=== PATIENT | female | born 1990 | race Caucasian/White ===

== ENCOUNTER 2019-09-25 11:09 | Outpatient (CLI) | payer OTHER, SELFPAY ==
[2019-09-25 11:47] VITALS: BP 128/83; PULSE 81
[2019-09-25 11:56] LABS: Basophils Percent Auto 0.4 % (0.2-1.2); Eosinophils Absolute Auto 0.2 K/mm3 (0-0.3); Eosinophils Percent Auto 2.2 % (0-4.4); Hematocrit 31.9 % (37.0-47.0); Hemoglobin 10.4 g/dL (12.0-15.0); Immature Granulocyte Absolute 0.08 K/mm3 (0.00-0.031); Immature Granulocyte Percent A 0.8 % (0-0.5); Lymphocytes Absolute Auto 1.52 K/mm3 (0.9-3.2); Lymphocytes Percent Auto 16.1 % (18.3-44.2); Mean Corpuscular HGB Conc 32.6 g/dl (32-36); Mean Corpuscular Hemoglobin 28.9 pg (26-34); Mean Corpuscular Volume 88.6 fl (80-100); Mean Platelet Volume 10.3 fl (7.4-10.4); Monocytes Absolute Auto 0.9 K/mm3 (0.1-0.6); Monocytes Percent Auto 9.4 % (2.6-8.5); Neutrophils Absolute Auto 6.7 K/mm3 (1.3-6.7); Neutrophils Percent Auto 71.1 % (45.5-73.1); Platelet Count Result 257 k/mm3 (150-375); Red Cell Distribution Width 13.3 % (11.5-14.5); White Blood Count 9.5 K/mm3 (4.5-10.0)
[2019-09-25 11:59] LABS: Add Urine Microscopic? YES; Appearance Urine Cloudy (Clear); Bilirubin Urine Negative (Negative); Blood Urine Negative (Negative); Color Urine Yellow (Yellow); Glucose Urine UA Negative (Negative); Ketones Urine Negative (Negative); Leukocyte Esterase Ur 1+ LEU/UL (NEGATIVE); Nitrate Urine Negative (Negative); Protein Urine Negative (Negative); RBC Urine 0-2 /hpf (0-2); Squamous Epithelial Cell Urine Many /hpf (Few); Urobilinogen Urine Negative mg/dL (<2.0)
[2019-09-25 12:01] VITALS: BP 127/80; PULSE 79
[2019-09-25 12:09] LABS: Alanine Aminotransferase 14 U/L (4-35); Albumin Level 3.3 g/dL (3.5-5.1); Alkaline Phosphatase 166 U/L (38-126); Aspartate Amino Transferase 26 U/L (14-36); Bilirubin,Total 0.2 mg/dL (0.2-1.3); Blood Urea Nitrogen 7 mg/dL (7-17); Calcium 8.5 mg/dL (8.4-10.2); Carbon Dioxide 20 mmol/L (22-30); Chloride 109 mmol/L (98-107); Estimated Glomerular Filt Rate > 60; Glucose 74 mg/dL (65-105); Potassium 4.2 mmol/L (3.4-5.0); Sodium 135 mmol/L (137-145); Uric Acid 5.2 mg/dL (2.5-7.5)
[2019-09-25 12:16] VITALS: BP 129/86; PULSE 78
[2019-09-25 12:22] LABS: Creatinine Urine 64.3 mg/dL; Total Protein Urine Random 23 mg/dL
[2019-09-25 12:31] VITALS: BP 137/86; PULSE 76
[2019-09-25 12:33] VITALS: BP 128/83; PULSE 97
== END 2019-09-25 12:58 | disposition home or self-care (01) ==
LOC: ANHLDR 11:42 → ANHOBOP 11:49 → ANHLDR 11:49
PROVIDERS: Visit Provider Obstetrics & Gynecology
DX: O13.3 Gestational [pregnancy-induced] hypertension without significant proteinuria, third trimester (principal); Z3A.36 36 weeks gestation of pregnancy
CPT/HCPCS: 36415; 59025; 80053; 81001; 82570; 84156; 84550; 85025; 87086; 99199

== ENCOUNTER 2019-10-02 13:42 | Outpatient (CLI) | payer OTHER, SELFPAY ==
[2019-10-02 14:13] VITALS: PULSE 83
[2019-10-02 14:15] VITALS: BP 135/89; PULSE 88
[2019-10-02 14:25] LABS: Basophils Absolute Auto 0.1 K/mm3 (0.0-0.1); Basophils Percent Auto 0.5 % (0.2-1.2); Eosinophils Absolute Auto 0.4 K/mm3 (0-0.3); Eosinophils Percent Auto 3.8 % (0-4.4); Hematocrit 30.8 % (37.0-47.0); Hemoglobin 9.9 g/dL (12.0-15.0); Immature Granulocyte Absolute 0.07 K/mm3 (0.00-0.031); Immature Granulocyte Percent A 0.7 % (0-0.5); Lymphocytes Absolute Auto 1.43 K/mm3 (0.9-3.2); Mean Corpuscular HGB Conc 32.1 g/dl (32-36); Mean Corpuscular Hemoglobin 28.6 pg (26-34); Mean Platelet Volume 10.4 fl (7.4-10.4); Monocytes Percent Auto 9.7 % (2.6-8.5); Neutrophils Absolute Auto 7.3 K/mm3 (1.3-6.7); Neutrophils Percent Auto 71.3 % (45.5-73.1); Platelet Count Result 270 k/mm3 (150-375); Red Blood Count 3.46 M/mm3 (4.2-5.4); Red Cell Distribution Width 13.7 % (11.5-14.5); White Blood Count 10.2 K/mm3 (4.5-10.0)
[2019-10-02 14:30] VITALS: BP 136/94; PULSE 86
[2019-10-02 14:38] LABS: Alanine Aminotransferase 15 U/L (4-35); Albumin Level 3.2 g/dL (3.5-5.1); Alkaline Phosphatase 146 U/L (38-126); Aspartate Amino Transferase 24 U/L (14-36); Bilirubin,Total 0.3 mg/dL (0.2-1.3); Blood Urea Nitrogen 7 mg/dL (7-17); Calcium 8.6 mg/dL (8.4-10.2); Carbon Dioxide 21 mmol/L (22-30); Chloride 109 mmol/L (98-107); Estimated Glomerular Filt Rate > 60; Glucose 81 mg/dL (65-105); Potassium 4.1 mmol/L (3.4-5.0); Sodium 133 mmol/L (137-145)
[2019-10-02 14:45] VITALS: BP 138/88; PULSE 88
--- NOTE | 2019-10-02 14:50 | PC.NURSE ---
Called Dr. Goetz with lab results and BPs. November D/C with 24hr urine.
== END 2019-10-02 15:05 | disposition home or self-care (01) ==
LOC: ANHOBOP 14:06 → ANHOBPP 11-02 10:57
PROVIDERS: Visit Provider Student in an Organized Health Care Education/Training Program
DX: O13.9 Gestational [pregnancy-induced] hypertension without significant proteinuria, unspecified trimester (principal); Z3A.00 Weeks of gestation of pregnancy not specified
CPT/HCPCS: 36415; 59025; 80053; 84550; 85025; 99199

== ENCOUNTER 2019-10-07 01:05 | Observation (INO) | payer OTHER, SELFPAY ==
--- NOTE | 2019-10-07 01:05 | OBADM ---
This patient, Luna Bush, admitted to the OB room Labor/Delivery/Recovery 105 for observation. Patient/family oriented to hospital policies and general routines including ID bracelet, bed and alarms, visiting hours, pain management, procedures, bathroom and other care routines, personal items, smoking policy, room service/diet, and visiting hours. Patient/Family are encouraged to report perceived risks to care and to ask questions if they do not understand what they are told or what they should do.
[2019-10-07 01:31] VITALS: BP 150/95; PULSE 88
[2019-10-07 02:01] VITALS: BP 138/94; PULSE 92
--- NOTE | 2019-10-19 10:00 | PM.DS ---
DS: Diagnosis Admitting Diagnosis Admitting Diagnosis: gest htn DS: Summary Time Spent with Patient Time attestation: Total time spent providing and/or coordinating discharge services: Exam Const: General: no acute distress Eyes: General: appearance normal, both eyes and all related structures Neck: Neck: supple and no JVD Thyroid: thyroid normal Resp: Effort & Inspection: normal respiratory effort Auscultation: clear to auscultation bilaterally Cardio: Rate: regular rate Rhythm: regular rhythm GI: Inspection: non-distended GI Palp: Yes Soft to palpation, No Tenderness to palpation present (GI) and No Guarding due to palpation present (GI) Auscultation: normal bowel sounds : General: Yes bladder normal to palpation External Female Exam: normal external appearance Speculum Exam - Vagina: normal vaginal discharge and No vaginal bleeding Speculum Exam - Cervix: nontender Bimanual exam- vagina & uterus: bladder normal to palpation and No Cervical tenderness present OB/external & speculum: No vaginal bleeding Skin: General skin exam: no rashes or lesions noted Extrem: General: normal to inspection and no edema Psych: Mental Status: mental status grossly normal Affect: normal affect Discharge Plan Discharge Discharging Clinician: Regulo Null Patient Disposition: Home, Self-Care Activity: as tolerated Diet: regular Discharge Instructions: OB ANTEPARTUM DISCHARGE INSTRUCTIONS This information is given to help you properly care for yourself at home after your discharge from the hospital. Follow these instructions until your doctor tells you otherwise. DIET: Eat Three Well Balanced Meals per Day Drink at Least Eight 8-Ounce Glasses of Caffeine-Free Beverages Daily Additional Diet Instructions: ACTIVITY: As Tolerated Additional Activity Instructions: RETURN TO LABOR AND DELIVERY IF YOU HAVE: Any Change In Baby's Normal Movement Pattern Any Leakage of Fluid Contractions 3-5 Minutes Apart with Increasing Intensity Vaginal Bleeding Worsening Signs of Hypertension in as per Handout Additional Reasons to Return to Labor and Delivery: Contractions may feel like abdominal pain, tightening, cramping, pressure, back ache, or thigh ache. 24 Hour Urine Collection: Continue 24 hour urine collection until at . When collection is completed, return specimen to the [facility]. See handout for 24 hour urine collection. OTHER INSTRUCTIONS: FOLLOW-UP CARE: Keep Next Scheduled Appointment To see in/on Valuables released to patient or family? N/A Medications from home returned to patient? N/A I Acknowledge Receipt of and Understand the Above Instructions IF YOU HAVE ANY QUESTIONS REGARDING THESE INSTRUCTIONS, PLEASE CALL [phone]. IF PROBLEMS ARISE, CALL YOUR PROVIDER. IF EMERGENCY CARE IS NEEDED, [facility] EMERGENCY ROOM IS AVAILABLE 24 HOURS A DAY. Stand Alone Forms: General Discharge Information Follow-up/Referrals: Kalen Cano MD [Physician] - Discharge Medications: No Action hydrocodone-acetaminophen [[place]] 5-325 mg tablet 1 - 2 tablet PO Q6H PRN (Reason: pain) Qty: 30 RF: 0 ibuprofen 600 mg tablet 600 mg PO Q6H PRN (Reason: cramps) Qty: 30 RF: 0 ferrous sulfate 325 mg (65 mg iron) tablet 325 mg PO BID Qty: 60 RF: 0 labetalol 200 mg tablet 200 mg PO Q12H Qty: 60 RF: 0 Date of admission: 10/07/19 01:05 Primary Care Provider: UNKNOWN,DOCTOR Admitting Provider: Regulo Null Discharge Date/Time: 10/07/19 02:45 Attending physician on admission: Regulo Null
== END 2019-10-07 02:45 | disposition home or self-care (01) ==
PROVIDERS: Admitting Provider Obstetrics & Gynecology; Visit Provider Obstetrics & Gynecology
DX: O13.9 Gestational [pregnancy-induced] hypertension without significant proteinuria, unspecified trimester (principal); Z3A.00 Weeks of gestation of pregnancy not specified
CPT/HCPCS: G0378; G0379

== ENCOUNTER 2019-10-07 08:39 | Observation (INO) | payer OTHER, SELFPAY ==
--- NOTE | 2019-10-09 13:07 | PM.OBTRLD ---
OB - Triage/Final Diagnosis Visit Information Reason for evaluation: threatened labor
== END 2019-10-07 10:34 | disposition home or self-care (01) ==
PROVIDERS: Admitting Provider Obstetrics & Gynecology; Visit Provider Obstetrics & Gynecology
DX: O47.1 False labor at or after 37 completed weeks of gestation (principal); Z3A.38 38 weeks gestation of pregnancy
CPT/HCPCS: G0378; G0379

== ENCOUNTER 2019-10-08 08:02 | Inpatient (IN) | payer OTHER, SELFPAY ==
[2019-10-08] VITALS (132 sets, daily range): BP systolic 125–182; BP diastolic 76–123; PULSE 101–138; RESP 18–22; TEMP 37.2–38.1; O2SAT 92–100; BMI 38.7
[2019-10-08 08:30] LABS: Basophils Absolute Auto 0.1 K/mm3 (0.0-0.1); Basophils Percent Auto 0.5 % (0.2-1.2); Eosinophils Absolute Auto 0.1 K/mm3 (0-0.3); Eosinophils Percent Auto 0.3 % (0-4.4); Hematocrit 30.2 % (37.0-47.0); Hemoglobin 9.8 g/dL (12.0-15.0); Immature Granulocyte Absolute 0.15 K/mm3 (0.00-0.031); Immature Granulocyte Percent A 0.9 % (0-0.5); Lymphocytes Absolute Auto 1.24 K/mm3 (0.9-3.2); Lymphocytes Percent Auto 7.8 % (18.3-44.2); Mean Corpuscular HGB Conc 32.5 g/dl (32-36); Mean Corpuscular Volume 89.3 fl (80-100); Mean Platelet Volume 10.5 fl (7.4-10.4); Monocytes Absolute Auto 1.5 K/mm3 (0.1-0.6); Monocytes Percent Auto 9.4 % (2.6-8.5); Neutrophils Absolute Auto 12.8 K/mm3 (1.3-6.7); Neutrophils Percent Auto 81.1 % (45.5-73.1); Platelet Count Result 252 k/mm3 (150-375); Red Blood Count 3.38 M/mm3 (4.2-5.4); Red Cell Distribution Width 14.3 % (11.5-14.5); White Blood Count 15.8 K/mm3 (4.5-10.0)
[2019-10-08] MEDS: LACTATED RINGERS 1,000 ML 125 ML IV CONT ×3 (08:30→14:40)
[2019-10-08 08:44] LABS: Alanine Aminotransferase 16 U/L (4-35); Albumin Level 3.6 g/dL (3.5-5.1); Alkaline Phosphatase 179 U/L (38-126); Aspartate Amino Transferase 27 U/L (14-36); Bilirubin,Total 0.2 mg/dL (0.2-1.3); Blood Urea Nitrogen 10 mg/dL (7-17); Calcium 8.8 mg/dL (8.4-10.2); Carbon Dioxide 18 mmol/L (22-30); Chloride 105 mmol/L (98-107); Estimated CRCL calculation 95 ml/min; Estimated Glomerular Filt Rate > 60; Glucose 80 mg/dL (65-105); Potassium 3.9 mmol/L (3.4-5.0); Sodium 131 mmol/L (137-145)
--- NOTE | 2019-10-08 08:49 | WPDANESEPP ---
Anes - Eval Pre Procedure Procedure: labor epidural Date/Time: 10/08/19 08:49 Surgeon: becky Pre Op Diagnosis: labor Patient Data Age: 29 Gender: F Height: 1.55 m Weight: 93 kg Last Vital Signs Pulse Ox 98 10/08/19 08:48 Allergies Allergy/AdvReac Type Severity Reaction Status Date / Time No Known Allergies Allergy Unverified 06/24/15 15:50 Laboratory Tests 10/08/19 10/08/19 10/08/19 08:25 08:25 08:25 WBC 15.8 K/mm3 H K/mm3 (4.5-10.0) RBC 3.38 M/mm3 L M/mm3 (4.2-5.4) Hgb 9.8 g/dL L g/dL (12.0-15.0) Hct 30.2 % L % (37.0-47.0) MCV 89.3 fl fl (80-100) MCH 29.0 pg pg (26-34) MCHC 32.5 g/dl g/dl (32-36) RDW 14.3 % % (11.5-14.5) Plt Count 252 k/mm3 k/mm3 (150-375) MPV 10.5 fl H fl (7.4-10.4) Immature Gran % (Auto) 0.9 % H % (0-0.5) Neut % (Auto) 81.1 % H % (45.5-73.1) Lymph % (Auto) 7.8 % L % (18.3-44.2) [place] % (Auto) 9.4 % H % (2.6-8.5) Eos % (Auto) 0.3 % % (0-4.4) Baso % (Auto) 0.5 % % (0.2-1.2) Lymph # (Auto) 1.24 K/mm3 K/mm3 (0.9-3.2) [place] # (Auto) 1.5 K/mm3 H K/mm3 (0.1-0.6) Eos # (Auto) 0.1 K/mm3 K/mm3 (0-0.3) Baso # (Auto) 0.1 K/mm3 K/mm3 (0.0-0.1) Abs Immat Gran (auto) 0.15 K/mm3 H K/mm3 (0.00-0.031) Absolute Neuts (auto) 12.8 K/mm3 H K/mm3 (1.3-6.7) Absolute Nucleated RBC 0.0 K/mm3 K/mm3 (0.0-0.012) Nucleated RBC % 0.0 % % (0.0-0.2) Sodium Potassium Chloride Carbon Dioxide BUN Creatinine Estim Creat Clear Calc Estimated GFR Glucose Calcium Total Bilirubin AST ALT Alkaline Phosphatase Total Protein Albumin RPR Pending Blood Type Pending Antibody Screen Pending 10/08/19 08:25 WBC RBC Hgb Hct MCV MCH MCHC RDW Plt Count MPV Immature Gran % (Auto) Neut % (Auto) Lymph % (Auto) [place] % (Auto) Eos % (Auto) Baso % (Auto) Lymph # (Auto) [place] # (Auto) Eos # (Auto) Baso # (Auto) Abs Immat Gran (auto) Absolute Neuts (auto) Absolute Nucleated RBC Nucleated RBC % Sodium 131 mmol/L L mmol/L (137-145) Potassium 3.9 mmol/L mmol/L (3.4-5.0) Chloride 105 mmol/L mmol/L (98-107) Carbon Dioxide 18 mmol/L L mmol/L (22-30) BUN 10 mg/dL mg/dL (7-17) Creatinine 0.80 mg/dL mg/dL (0.7-1.0) Estim Creat Clear Calc 95 ml/min ml/min Estimated GFR > 60 (59 - ) Glucose 80 mg/dL mg/dL (65-105) Calcium 8.8 mg/dL mg/dL (8.4-10.2) Total Bilirubin 0.2 mg/dL mg/dL (0.2-1.3) AST 27 U/L U/L (14-36) ALT 16 U/L U/L (4-35) Alkaline Phosphatase 179 U/L H U/L (38-126) Total Protein 7.0 g/dL g/dL (6.3-8.2) Albumin 3.6 g/dL g/dL (3.5-5.1) RPR Blood Type Antibody Screen Patient hx anesthesia problems: none Family hx anesthesia problems: none [facility] Family History Family History (Updated 09/25/19 @ 12:06 by Ana Merritt RN) Mother Diabetes mellitus Hypertension Social History Social History Smoking status: Never smoker Substance use: never Gender identity (if verbalized by the patient): Female Spiritual care concerns: No Exam Day of Procedure 10/08/19 08:49 Patient weight: obese Heart: regular rate and rhythm Lungs: normal air movement Airway: Mallampati scale class II Neurological: alert and oriented
[2019-10-08 10:56] LABS: Uric Acid 7.8 mg/dL (2.5-7.5)
[2019-10-08] MEDS: LABETALOL HCL 100 MG TABLET PO ×2 (12:14→13:39)
[2019-10-08] MEDS: OXYTOCIN 30 UNITS/NS 500 ML 30 UNITS/500 ML BAG IV CONT (13:40)
[2019-10-08] MEDS: AMPICILLIN 2 GM/NS 100 ML 2 GM/100 ML BAG IVPB (14:51)
--- NOTE | 2019-10-08 16:36 | PM.OBPNVD ---
OB - PN: Subj Subjective Date/time seen: 10/08/19 16:36 Interval history: pushing x 3 hours put on forcepts with mithout much movement offered section risks/benefits fhts ok OB - PN: Obj Data Labs CBC & Chem 7: 10/08/19 08:25 10/08/19 08:25 Labs: Laboratory Results - last 24 hr 10/08/19 10/08/19 10/08/19 08:24 08:25 08:25 WBC 15.8 H RBC 3.38 L Hgb 9.8 L Hct 30.2 L MCV 89.3 MCH 29.0 MCHC 32.5 RDW 14.3 Plt Count 252 MPV 10.5 H Immature Gran % (Auto) 0.9 H Neut % (Auto) 81.1 H Lymph % (Auto) 7.8 L [place] % (Auto) 9.4 H Eos % (Auto) 0.3 Baso % (Auto) 0.5 Lymph # (Auto) 1.24 [place] # (Auto) 1.5 H Eos # (Auto) 0.1 Baso # (Auto) 0.1 Abs Immat Gran (auto) 0.15 H Absolute Neuts (auto) 12.8 H Absolute Nucleated RBC 0.0 Nucleated RBC % 0.0 Sodium Potassium Chloride Carbon Dioxide BUN Creatinine Estim Creat Clear Calc Estimated GFR Glucose Uric Acid 7.8 H Calcium Total Bilirubin AST ALT Alkaline Phosphatase Total Protein Albumin Blood Type B Positive Antibody Screen Negative 10/08/19 08:25 WBC RBC Hgb Hct MCV MCH MCHC RDW Plt Count MPV Immature Gran % (Auto) Neut % (Auto) Lymph % (Auto) [place] % (Auto) Eos % (Auto) Baso % (Auto) Lymph # (Auto) [place] # (Auto) Eos # (Auto) Baso # (Auto) Abs Immat Gran (auto) Absolute Neuts (auto) Absolute Nucleated RBC Nucleated RBC % Sodium 131 L Potassium 3.9 Chloride 105 Carbon Dioxide 18 L BUN 10 Creatinine 0.80 Estim Creat Clear Calc 95 Estimated GFR > 60 Glucose 80 Uric Acid Calcium 8.8 Total Bilirubin 0.2 AST 27 ALT 16 Alkaline Phosphatase 179 H Total Protein 7.0 Albumin 3.6 Blood Type Antibody Screen OB - PN A/P Time Spent With Patient Time: Total time spent is greater than 50% in coordination of care (as documented) at patient's floor/unit and/or counseling patient:
--- NOTE | 2019-10-08 16:38 | PM.IMHP ---
H&P: HPI History of Present Illness Chief complaint: labor Narrative: Luna Bush is a 29 year old female presents at term in active labor. has apparently been uncomplicated. She is negative for group B strep Review of Systems Review of Systems: All systems reviewed & are unremarkable except as noted in HPI and below PMFSH Family History Family History Mother Diabetes mellitus Hypertension Social History Social History Smoking status: Never smoker Substance use: never Gender identity (if verbalized by the patient): Female Spiritual care concerns: No Meds Home Medications and Allergies Home Medications Medication Instructions Recorded Confirmed Type No Home Medications 10/08/19 10/08/19 History Allergies Allergy/AdvReac Type Severity Reaction Status Date / Time No Known Allergies Allergy Verified 10/08/19 14:56 Vital Signs Vital Signs - 24 hr 10/08/19 08:48 10/08/19 08:53 10/08/19 08:58 Temperature Pulse Rate 111 H Blood Pressure 159/104 H Pulse Oximetry 98 98 99 10/08/19 09:01 10/08/19 09:03 10/08/19 09:05 Temperature Pulse Rate 110 H 118 H Blood Pressure 164/106 H 165/102 H Pulse Oximetry 100 10/08/19 09:08 10/08/19 09:10 10/08/19 09:12 Temperature Pulse Rate 126 H 116 H Blood Pressure 167/85 H 149/91 H Pulse Oximetry 99 10/08/19 09:13 10/08/19 09:14 10/08/19 09:16 Temperature 98.9 F Pulse Rate 120 H 119 H Blood Pressure 149/92 H 147/87 H Pulse Oximetry 99 10/08/19 09:18 10/08/19 09:19 10/08/19 09:22 Temperature Pulse Rate 115 H 121 H Blood Pressure 146/89 H 142/92 H Pulse Oximetry 98 10/08/19 09:23 10/08/19 09:25 10/08/19 09:28 Temperature Pulse Rate 119 H 118 H Blood Pressure 136/90 140/91 H Pulse Oximetry 97 100 10/08/19 09:31 10/08/19 09:33 10/08/19 09:34 Temperature Pulse Rate 117 H 119 H Blood Pressure 143/86 H 140/87 Pulse Oximetry 99 10/08/19 09:40 10/08/19 09:43 10/08/19 09:46 Temperature Pulse Rate 112 H 111 H 114 H Blood Pressure 134/87 133/90 136/89 Pulse Oximetry 10/08/19 09:49 10/08/19 09:52 10/08/19 09:55 Temperature Pulse Rate 109 H 104 H 110 H Blood Pressure 141/89 H 140/94 H 131/89 Pulse Oximetry 10/08/19 09:58 10/08/19 10:01 10/08/19 10:16 Temperature Pulse Rate 109 H 111 H 110 H Blood Pressure 137/88 137/93 H 146/88 H Pulse Oximetry 10/08/19 10:31 10/08/19 10:46 10/08/19 11:01 Temperature Pulse Rate 113 H 126 H 105 H Blood Pressure 149/95 H 163/93 H 136/76 Pulse Oximetry 10/08/19 11:16 10/08/19 11:31 10/08/19 11:46 Temperature Pulse Rate 124 H 128 H 131 H Blood Pressure 143/99 H 148/79 H 165/107 H Pulse Oximetry 10/08/19 12:00 10/08/19 12:01 10/08/19 12:14 Temperature 99.1 F Pulse Rate 117 H 125 H Blood Pressure 164/101 H Pulse Oximetry 10/08/19 12:16 10/08/19 12:31 10/08/19 12:46 Temperature Pulse Rate 123 H 120 H 127 H Blood Pressure 166/107 H 161/101 H 170/97 H Pulse Oximetry 10/08/19 13:01 10/08/19 13:16 10/08/19 13:17 Temperature 100.3 F H Pulse Rate 128 H 131 H Blood Pressure 151/91 H 161/100 H Pulse Oximetry 10/08/19 13:31 10/08/19 13:38 10/08/19 13:39 Temperature 100.3 F H Pulse Rate 127 H 128 H Blood Pressure 160/98 H Pulse Oximetry 10/08/19 13:46 10/08/19 14:01 10/08/19 14:31 Temperature Pulse Rate 129 H 131 H 114 H Blood Pressure 167/100 H 167/104 H 155/90 H Pulse Oximetry 10/08/19 14:43 Temperature 100.5 F H Pulse Rate Blood Pressure Pulse Oximetry Exam Const: General: no acute distress Eyes: General: appearance normal, both eyes and all related structures Neck: Neck: supple and no JVD Thyroid: thyroid normal Resp: Effort & Inspection: normal respiratory effort Ausc
[2019-10-08] MEDS: ceFAZolin 2 GM/D5W 50 ML 2 GM/50 ML BAG IVPB (16:55)
--- NOTE | 2019-10-08 17:41 | PM.PROC ---
Procedure Note - Detailed Date of procedure: 10/08/19 Pre-op diagnosis: labor Surgeon: Regulo Null MD postop diagnosis term failure to descend Procedure: Primary low-transverse section EBL: 545cc Anesthesia: Epidural Findings: Male infant 7 lb oz Apgars 6 and 9 at 5 respectively Complications: None Description of procedure: The patient was admitted in active labor and got to completely dilated. She pushed for [id number]. She was unable to bring the head low enough despite application of forceps which were deemed not able to bring down. After obtaining informed consent she was taken to the back. She was prepped and draped in normal sterile fashion placed in the supine position. Under excellent epidural anesthesia the abdomen was entered in Pfannenstiel fashion progressive layers to the fascia. Fascia was incised in upward outward fashion bilaterally. Underlying muscles sharply dissected parietal perineum of a Doreen clamp. This was carried sharply superiorly and then inferiorly to open bladder bladder blade was placed a bladder flap was formed a bladder blade returned a low transverse incision made in the head delivered in the MARYLIN position. Anterior posterior shoulder were delivered spontaneously. Cord clamped x2 and cut. Passed off the table given Apgars 6 [id number]. Cord blood was drawn placenta. Placenta was then delivered intact spontaneously. After assuring no membranes were to remain in the uterus, the uterus was closed with continuous running locking 0 Vicryl from lateral edge to lateral edge. This was followed by a 2nd imbricating running locking 0 Vicryl from lateral edge to lateral edge. Hemostasis was assured. The ovaries and tubes appeared within normal limits. The uterus returned to the abdomen. The uterine incision inspected 1 last time and noted be hemostatic. The laps removed and accounted for. The fascia closed with continuous running 0 Vicryl from lateral edge to midline bilaterally. Irrigation the subcutaneous layer. The skin closed with 4 O Monocryl and glue. All sponge, needle, instrument counts were correct. There were no immediate complications. Mom and baby are doing fine at the time of dictation. It should be noted that there was an odor to the amniotic fluid and placenta and this was relayed to the pediatric team. The patient will be placed on antibiotics for 24 hours
--- NOTE | 2019-10-08 18:20 | PC.NURSE ---
rn at bedside. pt arm bent during bp reading. pt denies any pih symptoms
--- NOTE | 2019-10-08 18:35 | PC.NURSE ---
RN AT BEDSIDE.PT RESTING COMFORTABLE. PT DENIES ALL PIH SYMPTOMS. ATTEMPTING TO RETAKE BP.
--- NOTE | 2019-10-08 18:41 | PC.NURSE ---
RN AT BEDSIDE. PT DENIES ANY PIH SYMPTOMS. BP CUFF REPOSITIONED. REGULAR BP CUFF REMAINS ON LEFT UPPER ARM.
--- NOTE | 2019-10-08 19:09 | PC.NURSE ---
dr negron called and notified of missing post-op anesthesia orders. dr negron stated dr was unable to enter new orders r/t labor fentanyl orders still being active at that time. dr informed that labor orders have been d/c'd. orders received to administer 25 mcg of fentanyl [id number] up to 250 mcg. telephone orders read back and confirmed.
[2019-10-08] MEDS: LABETALOL HCL INJ 100 MG/20 ML VIAL 20 MG IV PUSH (19:53)
[2019-10-08] MEDS: OXYTOCIN 30 UNITS/NS 500 ML 30 UNITS/500 ML BAG 125 UNITS IV CONT (19:57)
--- NOTE | 2019-10-08 20:23 | PC.NURSE ---
dr clau dozier paged. dr returned page. orders for 1g ancef q8hr x2 doses to start 8 hours after initial ancef 2g dose in or, confirmed. rn inquired about toradol order r/t pt hypertension. stated toradol may be administered if diastolic bp is less than 90. dr stated to report bp's more than or equal to 165 systolic and/or more than or equal to 110 diastolic.
--- NOTE | 2019-10-08 20:40 | PC.NURSE ---
Patient transferred to post room #282 via stretcher. Support person present. Oriented to unit, room, information board, rooming in, admission packet and security measures. Patient verbalizes understanding.
[2019-10-08] MEDS: DEXTROSE 5%/0.45% SOD CHL 1,000 ML 125 ML IV CONT (22:28)
[2019-10-09] VITALS (7 sets, daily range): BP systolic 115–141; BP diastolic 72–96; PULSE 99–124; RESP 16–20; TEMP 36.5–37.7; O2SAT 97–100
[2019-10-09 05:34] LABS: Hematocrit 24.3 % (37.0-47.0); Hemoglobin 7.8 g/dL (12.0-15.0); Mean Corpuscular HGB Conc 32.1 g/dl (32-36); Mean Corpuscular Hemoglobin 28.7 pg (26-34); Mean Corpuscular Volume 89.3 fl (80-100); Mean Platelet Volume 10.9 fl (7.4-10.4); Platelet Count Result 213 k/mm3 (150-375); Red Blood Count 2.72 M/mm3 (4.2-5.4); Red Cell Distribution Width 14.5 % (11.5-14.5); White Blood Count 15.5 K/mm3 (4.5-10.0)
[2019-10-09 05:58] LABS: Band Neutrophils Percent 15 % (0-6); Lymphocytes Absolute Manual 0.93 K/mm3 (1.1-4.5); Monocytes Absolute Manual 1.08 K/mm3 (0.1-0.90); Monocytes Percent Manual 7 % (3-9); Neutrophils Absolute Manual 13.48 K/mm3 (1.7-7.2); Neutrophils Percent Manual 72 % (46-73); Total Cells Counted 100
[2019-10-09 05:59] LABS: Platelet Estimate Adequate (Adequate)
[2019-10-09] MEDS: KCL 20 MEQ/D5/0.45% SOD CHL 1,000 ML 125 ML IV CONT (06:50)
--- NOTE | 2019-10-09 06:54 | WPDANLDNPN2 ---
Anes-Prog Note L&D-Neuraxial Date/Time: 10/09/19 06:54 Neuraxial medications: epidural PF morphine Opiod-related complaints: none Patient feedback: Patient satisfied with post-operative pain management.
--- NOTE | 2019-10-09 06:54 | WPDANLDPN2 ---
Anes-Prog Note L&D Date/Time: 10/09/19 06:54 Comfortable throughout: section Neuraxial method: epidural Epidural/Spinal procedure site: clean & non-tender Neuro status: Neuro function grossly intact. Cardiovascular status: normal Respiratory status: normal Airway patency: baseline Mental status: baseline Post-Op hydration status: normal Vital Signs: Last Vital Signs Temp 36.9 C 10/09/19 04:30 Pulse 101 H 10/09/19 04:30 Resp 16 10/09/19 04:30 BP 115/74 10/09/19 04:30 Pulse Ox 100 10/09/19 04:30 I/O: Intake & Output 10/08/19 10/08/19 10/09/19 15:59 23:59 07:59 Intake Total 2200 930 1830 Output Total 1095 750 Balance 2200 -165 1080 Post-procedural complaints: none Patient feedback: Patient satisfied with anesthetic care.
[2019-10-09 07:28] LABS: Rapid Plasma Reagin Non-Reactive (NonReactive)
--- NOTE | 2019-10-09 08:15 | PC.NURSE ---
Consulted with patient, mother states eagerly fed during the night and is now sleepy and not waking for feeding. Assured mother this is normal for the first few days. Attempted at 0800 infant sleepy and suggested skin to skin and attempt again in 15-30 min. Reviewed infant feeding cues, frequencies, duration of feedings, feeding elimination flow sheet, and signs of adequate intake. Demonstrated stimulation techniques to wake infant for feeding. Assisted with infant to breast. Reviewed positioning/alignment in cross cradle, holding breast in C hold and guided asymmetrical latch on. Discussed rational for each. Several attempts before infant was able to latch correctly. nursed eagerly with steady draws and occasional swallowing, followed with long pausing. Reviewed signs of a correct latch, effective nursing and suck swallow ratio. Suggested to stimulate to keep awake and nursing. was able to maintain latch without discomfort to mother. Nipple care reviewed. Instructed mother to call out for RN assistance if she is unable to latch for feeding or she has discomfort with nursing. Instructed feeding should be initiated three hours from start of last feeding or if feeding cues are noted before. Mother voiced understanding of information shared.
[2019-10-09] MEDS: POLYSACCHARIDE IRON COMPLEX 150 MG CAPSULE PO ×2 (09:36→16:16)
[2019-10-09] MEDS: MULTIVIT/MIN/PREN/FOL AC/IRON TABLET 1 TAB PO (09:37)
[2019-10-09] MEDS: DOCUSATE SODIUM 100 MG CAPSULE PO ×2 (09:37→16:16)
[2019-10-09] MEDS: IBUPROFEN 600 MG TABLET PO ×2 (09:37→18:57)
[2019-10-09] MEDS: SIMETHICONE 80 MG TAB.CHEW PO ×4 (09:42→22:15)
--- NOTE | 2019-10-09 12:30 | PC.NURSE ---
Mother called for assist with latching. Infant is sleepy making weak attempts to latch. will latch nursing for a short burst and fall asleep releasing latch. Attempt 1115 1145 & 1215 supplemented at 1230. was sleepy and LC had to wake and stimulate to bottle feed. Discussed pumping if is not awake and eager next feeding.
--- NOTE | 2019-10-09 15:30 | PC.NURSE ---
Breast pump provided due to ineffective nursing. Instructions given on breast pump care and usage, pumping schedule, nipple care, and collection and storage of breast milk. Encouraged [id number], breast massage and manual expression to stimulate supply. Assessed patient for correct flange size, placement and draw. Patient verbalizes and demonstrates understanding of instructions.
--- NOTE | 2019-10-09 15:45 | PC.NURSE ---
Attempt to breast, again sleepy. Attempt for 15 minutes with no successful latch. Discussed pumping to stimulate milk supply and offer EBM as part of supplement.
--- NOTE | 2019-10-09 18:00 | PM.OBPNVD ---
OB - PN: Subj Subjective Date/time seen: 10/09/19 18:00 Narrative: Pain OK. Tolerating diet. Would like circumcision for son. OB - PN: Obj Data Labs CBC & Chem 7: 10/09/19 04:33 10/08/19 08:25 OB - PN A/P Plan Comments: A: POD#1, doing well. P: Routine care. Reviewed circ. Review of Systems Review of Systems: All systems reviewed & are unremarkable except as noted in HPI and below Exam Psych: Other: AVSS I/O OK ABD soft, nontender, fundus firm. Incision c/d/i. EXT nontender
[2019-10-10] MEDS: IBUPROFEN 600 MG TABLET PO ×4 (01:33→22:42)
[2019-10-10 03:30] VITALS: BP 142/98; PULSE 95; RESP 18; TEMP 36.6; O2SAT 98
[2019-10-10] MEDS: SIMETHICONE 80 MG TAB.CHEW PO ×4 (07:36→22:42)
[2019-10-10] MEDS: POLYSACCHARIDE IRON COMPLEX 150 MG CAPSULE PO ×2 (07:36→16:08)
[2019-10-10] MEDS: DOCUSATE SODIUM 100 MG CAPSULE PO ×2 (07:37→16:08)
[2019-10-10] MEDS: MULTIVIT/MIN/PREN/FOL AC/IRON TABLET 1 TAB PO (07:37)
--- NOTE | 2019-10-10 07:45 | PC.NURSE ---
Consulted with patient,mother reports infant remained sleepy during the night. Mother continues to attempt to breast each feeding, will then supplement followed with pumping. Encouraged mother to continue with current feeding plan today. Stressed milk should transition in within a few days. Infant may be more awake in a few days and eager to feed with increased supply.
[2019-10-10 07:49] VITALS: BP 148/103; PULSE 94; RESP 18; TEMP 36.5
--- NOTE | 2019-10-10 11:08 | PM.OBPNVD ---
OB - PN: Subj Subjective Date/time seen: 10/10/19 11:08 Narrative: Pain OK. Tolerating diet. OB - PN: Obj Data Labs CBC & Chem 7: 10/09/19 04:33 10/08/19 08:25 OB - PN A/P Plan Comments: A: POD#2, doing well. P: Routine care. Exam Psych: Other: AVSS I/O OK ABD soft, nontender, fundus firm. Incision c/d/i. EXT nontender
[2019-10-10 16:00] VITALS: BP 147/95; PULSE 86; RESP 18; TEMP 36.7
[2019-10-10 19:46] VITALS: BP 129/96; PULSE 93; RESP 16; TEMP 36.6; O2SAT 97
[2019-10-10 23:18] VITALS: BP 145/95; PULSE 93; RESP 16; TEMP 36.9; O2SAT 100
[2019-10-11 04:00] VITALS: BP 122/86; PULSE 96; RESP 16; TEMP 36.5; O2SAT 96
[2019-10-11] MEDS: DOCUSATE SODIUM 100 MG CAPSULE PO (08:08)
[2019-10-11] MEDS: MULTIVIT/MIN/PREN/FOL AC/IRON TABLET 1 TAB PO (08:08)
[2019-10-11] MEDS: IBUPROFEN 600 MG TABLET PO (08:09)
[2019-10-11] MEDS: POLYSACCHARIDE IRON COMPLEX 150 MG CAPSULE PO (08:09)
--- NOTE | 2019-10-11 11:40 | PM.OBPNVD ---
OB - PN: Subj Subjective Date/time seen: 10/11/19 11:40 Narrative: Pain OK. Tolerating diet. Would like to go home. OB - PN: Obj Data Labs CBC & Chem 7: 10/09/19 04:33 10/08/19 08:25 OB - PN A/P Plan Comments: A: POD#3, doing well. P: Home to f/u 4 weeks. Exam Psych: Other: AVSS ABD soft, nontender, fundus firm. Incision c/d/i. EXT nontender
--- NOTE | 2019-10-11 11:41 | P.DS_ITS ---
DS: Diagnosis Discharge Diagnosis (1) Normal delivery at term: Code(s): O80 - Encounter for full-term uncomplicated delivery Status: Acute OB - DS: Summary OB Procedures : None OB Procedures Intrapartum: OB Procedures: : None Peripartum Data Procedures: Procedures Operation Date: 10/08/19 16:40 Actual Procedures Side Surgeon p Section Regulo Null MD Time Spent with Patient Time attestation: Total time spent providing and/or coordinating discharge services: DS: Data Data Completed and Pending Labs on day of discharge: Preliminary micro results at discharge 10/08/19 18:27 Anaerobic Culture - Preliminary Placenta Discharge Plan Discharge Attending physician on discharge: Kalen Cano Discharging Clinician: Kalen Caon Patient Disposition: Home, Self-Care Activity: may shower, may drive after 2 weeks and pelvic rest Diet: regular Wound Care Instructions: incision open to air Discharge Instructions: Call or return if temperature above 100.4? F, increased abdominal pain, increased vaginal bleeding or any new problems. Stand Alone Forms: General Discharge Information Follow-up/Referrals: Kalen Cano MD [Physician] - (4 weeks) Discharge Medications: New hydrocodone-acetaminophen [[place]] 5-325 mg tablet 1 - 2 tablet PO Q6H PRN (Reason: pain) Qty: 30 RF: 0 ibuprofen 600 mg tablet 600 mg PO Q6H PRN (Reason: cramps) Qty: 30 RF: 0 ferrous sulfate 325 mg (65 mg iron) tablet 325 mg PO BID Qty: 60 RF: 0 No Action No Home Medications RF: 0 Date of admission: 10/08/19 08:02 Primary Care Provider: UNKNOWN,DOCTOR Admitting Provider: Regulo Null Attending physician on admission: Regulo Null
--- NOTE | 2019-10-11 13:00 | PC.NURSE ---
Mother reports began eagerly feeding during the night. Mother will supplement after feedings and continues to pump. Mother milk is transitioning in, she is pumping 10-15 mls each session for part of supplement. Mother is able to independently latch infant with appropriate positioning/alignment. She denies any nipple discomfort, is feeding as required and waking to feed if needed. has had several effective feedings followed by supplementation in the past 24 hours. is currently meeting outcomes for weight, output, jaundice and feeding frequencies. Mother states she feels confident to continue feeding plan at home. Reviewed transition to breast milk, signs of adequate intake, and engorgement/relief. Instructed to call ICP if intake/output less than required. Reviewed regular medications mother is taking. Information provided per [facility]. Reviewed community resources on the [facility] website and in the Mom/Baby guide. Information on outpatient services provided. Discussed when to discontinue supplementation, advised to continue to offer supplement until refuses and continues to have required output and is gaining weight. Mother has no further questions at this time.
[2019-10-12 09:21] VITALS: TEMP 36.7
== END 2019-10-11 16:04 | disposition home or self-care (01) | DRG 787 ==
LOC: ANHLDR 17:52 → ANHOB2 10-11 11:43 → ANHLDR 10-12 09:12 → ANHOB2 10-12 09:12
PROVIDERS: Admitting Provider Obstetrics & Gynecology; Visit Provider Obstetrics & Gynecology
PROC: 10D00Z1 Extraction of Products of Conception, Low, Open Approach (ICD-10-PCS; CPT 59514; principal; 2019-10-08 16:40)
DX: O99.214 Obesity complicating childbirth (principal); O75.2 Pyrexia during labor, not elsewhere classified; E66.9 Obesity, unspecified; Z23 Encounter for immunization; O64.8XX0 Obstructed labor due to other malposition and malpresentation, not applicable or unspecified; Z3A.38 38 weeks gestation of pregnancy; Z37.0 Single live birth; O66.5 Attempted application of vacuum extractor and forceps
CPT/HCPCS: 36415; 80053; 84550; 85025; 86592; 86850; 86900; 86901; 87070; 87075; 87205; A9270; J0131; J0290; J0690; J2274; J2590; J2795; J3010; J3480; J7120

== ENCOUNTER 2019-10-12 09:30 | Outpatient (CLI) | payer OTHER, SELFPAY ==
[2019-10-12] VITALS (14 sets, daily range): BP systolic 100–169; BP diastolic 61–109; PULSE 77–116
[2019-10-12] MEDS: LABETALOL HCL 100 MG TABLET 200 MG PO (10:09)
--- NOTE | 2019-10-12 10:42 | PM.OBTRLD ---
OB - Triage/Final Diagnosis Visit Information Date of evaluation: 10/12/19 Reason for evaluation: other (pp htn) Evaluation Vital signs: Vital Signs - 24 hr 10/12/19 10:09 10/12/19 10:16 10/12/19 10:31 Pulse Rate 77 83 78 Blood Pressure 169/103 H 165/109 H 168/103 H
--- NOTE | 2019-10-12 11:17 | PC.NURSE ---
informed labs are drawn, but results not available yet.
--- NOTE | 2019-10-12 11:17 | PC.NURSE ---
Dr. Ant Pulido and anh and informed of BP's and PO Labetalol was given over 1 hour ago. Additional med orders received.
[2019-10-12 11:31] LABS: Basophils Absolute Auto 0.1 K/mm3 (0.0-0.1); Basophils Percent Auto 0.5 % (0.2-1.2); Eosinophils Absolute Auto 0.3 K/mm3 (0-0.3); Eosinophils Percent Auto 2.3 % (0-4.4); Hematocrit 24.7 % (37.0-47.0); Hemoglobin 7.9 g/dL (12.0-15.0); Immature Granulocyte Absolute 0.48 K/mm3 (0.00-0.031); Immature Granulocyte Percent A 3.7 % (0-0.5); Lymphocytes Absolute Auto 1.53 K/mm3 (0.9-3.2); Lymphocytes Percent Auto 11.9 % (18.3-44.2); Mean Corpuscular Hemoglobin 28.9 pg (26-34); Mean Corpuscular Volume 90.5 fl (80-100); Monocytes Absolute Auto 1.3 K/mm3 (0.1-0.6); Monocytes Percent Auto 10.1 % (2.6-8.5); Neutrophils Absolute Auto 9.2 K/mm3 (1.3-6.7); Neutrophils Percent Auto 71.5 % (45.5-73.1); Nucleated Red Blood Cells Perc 0.3 % (0.0-0.2); Platelet Count Result 343 k/mm3 (150-375); Red Blood Count 2.73 M/mm3 (4.2-5.4); Red Cell Distribution Width 14.1 % (11.5-14.5); White Blood Count 12.8 K/mm3 (4.5-10.0)
[2019-10-12 11:44] LABS: Alanine Aminotransferase 32 U/L (4-35); Alkaline Phosphatase 182 U/L (38-126); Aspartate Amino Transferase 53 U/L (14-36); Bilirubin,Total 0.3 mg/dL (0.2-1.3); Blood Urea Nitrogen 11 mg/dL (7-17); Calcium 8.1 mg/dL (8.4-10.2); Carbon Dioxide 28 mmol/L (22-30); Chloride 107 mmol/L (98-107); Estimated Glomerular Filt Rate > 60; Glucose 80 mg/dL (65-105); Potassium 4.3 mmol/L (3.4-5.0); Sodium 137 mmol/L (137-145); Uric Acid 5.7 mg/dL (2.5-7.5)
[2019-10-12] MEDS: LABETALOL HCL 100 MG TABLET PO (11:48)
[2019-10-12] MEDS: NIFEdipine 10 MG CAPSULE 20 MG PO (11:48)
[2019-10-12] MEDS: IBUPROFEN 600 MG TABLET PO (11:55)
--- NOTE | 2019-10-12 12:23 | PC.NURSE ---
Dr. Ant Pulido on unit and informed of lab results and drop in BP's after meds. MD in to talk with pt. MD will discharge pt to home with prescription for Labetalol. Pt to call office to make appointment to have BP checked on Wednesday10/16/19.
--- NOTE | 2019-10-12 12:27 | WPDOBADMIT ---
Obstetrics - Admit Note Admission Note: record reviewed. No pertinent additions to the history and/or any subsequent changes in the physical findings that are not consistent with the expected course of the were found. Additions to the history and/or subsequent changes in the physical findings follow. None. pp with increased bp responded to labetolol
--- NOTE | 2019-10-12 12:55 | PC.NURSE ---
Dr. Cano on unit and informed pt is still here, but has a discharge order and will take Labetalol 200 mg PO BID and have BP rechecked in office on Wednesday. informed pt would like him to stop in and see her. in to see pt.
== END 2019-10-12 13:49 | disposition home or self-care (01) ==
LOC: ANHOBOP 09:49 → ANHOBPP 11:43
PROVIDERS: Visit Provider Obstetrics & Gynecology
DX: O13.9 Gestational [pregnancy-induced] hypertension without significant proteinuria, unspecified trimester (principal); Z3A.00 Weeks of gestation of pregnancy not specified
CPT/HCPCS: 36415; 80053; 84550; 85025; 99199; A9270